=== PATIENT | female | born 1970 | race Caucasian/White ===

== ENCOUNTER 2017-05-14 20:26 | Emergency (ER) | payer OTHER ==
[~2017-05-14] VITALS: Ht 157.5 cm; Wt 59.0 kg
[2017-05-14] MEDS ORDERED: CLONIDINE HCL0.1 MG PO (21:03)
[2017-05-14] MEDS ORDERED: ESCITALOPRAM OX10 MG PO (21:03)
[2017-05-14] MEDS ORDERED: TRAZODONE HCL50 M1 PO (21:04)
--- NOTE | 2017-05-14 21:07 | CT SCAN REPORT ---
EXAMINATION: CT HEAD WITHOUT CONTRAST CT FACIAL BONES WITHOUT CONTRAST CLINICAL INFORMATION: 47-year-old woman with right cheek ecchymosis and epistaxis. COMPARISON: None. TECHNIQUE: Imaging was performed from the skull base to vertex without intravenous administration of contrast. In addition, helical noncontrast CT imaging was acquired through the facial bones and source images were reviewed along with axial reconstructions and sagittal and coronal MPRs. DLP: 1172 mGy-cm FINDINGS: HEAD: No intracranial mass, hemorrhage, or midline shift is visualized. The ventricles and sulci are age-appropriate. No extra-axial collections are identified. FACIAL BONES: There is no evidence of an acute facial bone fracture. The paranasal sinuses are well aerated. There is mild right premaxillary soft tissue swelling. No significant dental disease is appreciated. The orbits are unremarkable in appearance. IMPRESSION: No acute intracranial process or discrete facial bone fracture. Right premaxillary soft tissue swelling.
[2017-05-14 21:11] LABS: ABSOLUTE BASOPHIL COUNT 0.1 /CUMM (0.0-0.2); ABSOLUTE EOSINOPHIL COUNT 0.1 /CUMM (0.0-0.7); ABSOLUTE GRANULOCYTE CT 5.8 /CUMM (1.4-6.5); ABSOLUTE MONOCYTE COUNT 0.5 /CUMM (0.10-0.60); BASOPHIL % 0.5 % (0.0-2.0); EOSINOPHIL % 0.7 % (0-5); HEMATOCRIT 42.5 % (37-47); MEAN CORPUSCULAR HGB 34.1 PG (27.0-31.0); MEAN CORPUSCULAR HGB CONC 32.7 G/DL (33.0-37.0); MEAN CORPUSCULAR VOLUME 104.1 FL (81.0-99.0); MEAN PLATELET VOLUME 7.6 FL (7.4-10.4); PLATELET COUNT 396 /CUMM (130-400); RBC DISTRIBUTION WIDTH 14.6 % (11.5-14.5); RED BLOOD CELL CT 4.08 /CUMM (4.20-5.40); WHITE BLOOD CELL COUNT 10.5 /CUMM (4.8-10.8)
--- NOTE | 2017-05-14 21:14 | ED AMS/SEIZURE/WEAK/DIZZY ---
History of Present Illness General Chief Complaint: Fall Stated Complaint: FALL Source: patient, family, old records Exam Limitations: poor historian Vital Signs & Intake/Output Vital Signs & Intake/Output Vital Signs Date Time Temp Pulse Resp B/P B/P Pulse O2 O2 Flow FiO2 Mean Ox Delivery Rate 05/15 0640 98.6 108 18 108/65 05/15 0640 98.6 108 18 108/65 95 Room Air 05/15 0431 94 20 95/51 95 Room Air 05/15 0430 94 20 95/51 05/15 0252 105 18 123/68 05/15 0252 105 18 123/68 97 Room Air 05/15 0030 98.6 107 18 103/57 05/15 0029 107 20 103/57 98 Room Air 05/14 2230 98.6 85 18 100/59 05/14 2230 98.6 85 18 100/59 95 Room Air 05/14 2029 98.3 99 18 118/69 05/14 2030 94 Room Air 05/14 2025 98.3 99 18 118/69 94 Room Air ED Intake and Output 05/15 0000 05/14 1200 Intake Total Output Total Balance Patient 130 lb Weight Weight Estimated Measurement Method Allergies Coded Allergies: No Known Allergies (05/14/17) Reconcile Medications Clonidine HCl 0.1 MG TABLET 1 TAB PO QPM BH (Reported) Escitalopram Oxalate 10 MG TABLET 1 TAB PO DAILY BH (Reported) Trazodone HCl 50 MG TABLET 1 TAB PO QPM SLEEP (Reported) Triage Note: TRIAGE: PATIENT TO ER FROM OFFICE W/ SPOUSE, PATIENT NOTED W/ SWELLING TO R CHEEK AND DRIED BLOOD IN R NARE, DENIES ETOH THOUGH NOTED W/ ODOR OF +ETOH. PATIENT ALERT TO PERSON AND PLACE, WHEN ASKED DATE OF , PATIENT ANSWERING MONTH ONLY AND FORGETS QUESTION ASKED OF HER. PATIENT REPEATING "IT'S ALL GOOD." DENIES ANY COMPLAINTS. MOVING ALL EXTERMITIES THOUGH VERY UNSTEADY, UNABLE TO SIT UPRIGHT FOR GREATER THAN 5 SECONDS W/O FALLING BACK ONTO STRETCHER. PUPILS DILATED BILATERALLY. NEUROS INTACT. DENIES PMHX AND DENIES BLOODTHINNERS. NOT ANSWERING WHAT HAPPENED TONIGHT, STATES "THIS IS RIDICULOUS." CALM AND COOPERATIVE. Triage Nurses Notes Reviewed? yes Onset: Just prior to arrival Duration: unknown duration Timing: recent history Injury Environment: work Severity: mild, moderate Modifying Factors: Worsens With: other (palpation). LMP (ages 10-50): unknown : No Patient currently breastfeeds: No HPI: Prior to admission patient was found in her office with right-sided nose bleed and bruising over the cheek having decreased responsiveness. She does not recall falling. There was no reported fever chills nausea vomiting diarrhea abdominal pain chest pain shortness of breath headache dysuria rash. (Ezekiel Davis MD) Past History Travel History Traveled to [place] past 21 day No Medical History Any Pertinent Medical History? none Neurological: NONE EENT: NONE Cardiovascular: NONE Respiratory: NONE Gastrointestinal: NONE Hepatic: NONE Renal: NONE Musculoskeletal: NONE Psychiatric: NONE Endocrine: NONE Blood Disorders: NONE Cancer(s): NONE MILLER KILN DRIED SALT/Reproductive: NONE Surgical History Surgical History: non-contributory Psychosocial History Tobacco Use: Never used ETOH Use: heavy use Illicit Drug Use: denies illicit drug use Family History Hx Contributory? No (Ezekiel Davis MD) Review of Systems Review of Systems Constitutional: Reports: no symptoms. EENTM: Reports: no symptoms. Respiratory: Reports: no symptoms. Cardiovascular: Reports: no symptoms. GI: Reports: no symptoms. Genitourinary: Reports: no symptoms. Musculoskeletal: Reports: see HPI. Skin: Reports: no symptoms. Neurological/Psychological: Reports: see HPI, cognitive dysfunction, confusion. Hematologic/Endocrine: Reports: no symptoms. Immunologic/Allergic: Reports: no symptoms. All Other Systems: Reviewed and Negative (Ezekiel Davis MD) Physical Exam Physical Exam General Appearance: well developed/nourished, lethargic, mild distress Head: evidence of injury, swelling, tenderness Eyes: Bilateral: normal appearance, PERRL, EOMI, other (nystagmus). Ears, Nose, Throat: normal pharynx, normal ENT inspection, hearing grossly normal Neck: normal inspection, supple, full range of motion, no midline tenderness Respiratory: normal breath sounds, chest non-tender, no respiratory distress, quiet respiration, lungs clear Cardiovascular: regular rate/rhythm, normal peripheral pulses, norml femoral pulses equa Peripheral Pulses: 4+ carotid (R), 4+ carotid (L) Gastrointestinal: normal bowel sounds, soft, non-tender, no organomegaly Back: normal inspection, normal range of motion, no vertebral tenderness Extremities: normal range of motion, no ligament instability Neurologic/Psych: awake, normal mood/affect, rn international II-XII nml as tested Reflexes: 2+: bicep (R), bicep (L). Skin: intact, normal color, warm/dry Lymphatic: no anterior cervical smitha Core Measures ACS in differential dx? No CVA/TIA Diagnosis No Sepsis Present: No Sepsis Focused Exam Completed? No (Ezekiel Davis MD) Progress Differential Diagnosis: alcohol intoxication, CVA/stroke, dehydration, drug intoxication, electrolyte imbalance, hypoxia Plan of Care: Orders Procedure Date/time Status Regular Diet 05/15 B Active CIWA 05/14 2133 Active MAGNESIUM 05/15 2039 Complete URINE DRUG SCREEN FOR ER ONLY 05/14 2032 Active TROPONIN LEVEL 05/14 2032 Complete ETHANOL 05/14 2032 Complete COMPREHENSIVE METABOLIC PANEL 05/14 2032 Complete CBC WITHOUT DIFFERENTIAL 05/14 2032 Complete EKG 05/14 2030 Active Laboratory Tests 05/14/172039: Anion Gap 16, Estimated GFR > 60, BUN/Creatinine Ratio 22.0, Glucose 107 H, Calcium 9.2, Magnesium 2.2, Total Bilirubin 0.4, AST 63 H, ALT 59 H, Alkaline Phosphatase 83, Troponin I < 0.01, Total Protein 6.9, Albumin 4.2, Globulin 2.7, Albumin/Globulin Ratio 1.6, CBC w Diff NO MAN DIFF REQ, RBC 4.08 L, MCV 104.1 H, MCH 34.1 H, MCHC 32.7 L, RDW 14.6 H, MPV 7.6, Gran % 55.3, Lymphocytes % 38.4, Monocytes % 5.1, Eosinophils % 0.7, Basophils % 0.5, Absolute Granulocytes 5.8, Absolute Lymphocytes 4.0 H, Absolute Monocytes 0.5, Absolute Eosinophils 0.1, Absolute Basophils 0.1, Serum Alcohol 455.0 05/14/172033: Magnesium Cancelled Diagnostic Imaging: Viewed by Me: CT Scan. Discussed w/RAD: CT Scan. Radiology Impression: No acute intracranial process or discrete facial bone fracture. Right premaxillary soft tissue swelling. Initial ED EKG: normal axis, normal intervals, normal p-waves, normal QRS complex, normal sinus rhythm, no ST T wave changes Rhythm Strip: normal sinus rhythm Hand-Off Endorsed To: Colemna Gonzales DO Endorsed Time: 0700 Pending: other ([place]) (Ezekiel Davis MD) Departure Departure Disposition: HOME OR SELF CARE Condition: Stable Clinical Impression Primary Impression: Altered mental status, unspecified Secondary Impressions: Alcohol intoxication delirium, Contusion of face Referrals: Patient Has No Primary Care Dr (PCP/Family) Departure Forms: Customer Survey General Discharge Information (Ezekiel Davis MD) Departure Comments 05/15/17 8:14 AM The patient is awake alert and oriented 3. No ataxia. She is for discharge for further care. (Coleman Gonzales DO)
[2017-05-14 21:27] LABS: GRANULOCYTE % 55.3 % (42.2-75.2)
[2017-05-15 06:40] VITALS: BP 108/65
== END 2017-05-15 09:11 ==
LOC: ERH 20:26
PROVIDERS: Emergency Medicine
DX: S00.83XA Contusion of other part of head, initial encounter (principal); R41.82 Altered mental status, unspecified; F10.121 Alcohol abuse with intoxication delirium; X58.XXXA Exposure to other specified factors, initial encounter; Y92.9 Unspecified place or not applicable; Y93.9 Activity, unspecified
CPT/HCPCS: 80307; 93005; 93010; 96374; G0480; J2405